=== PATIENT | female | born 1980 | race Caucasian/White ===

== ENCOUNTER 2016-09-11 20:09 | Inpatient (IN) | payer OTHER ==
[2016-09-11 20:27] VITALS: BMI 44.9
[2016-09-11] MEDS ORDERED: NS 1,000 ML IV ONE (21:22)
[2016-09-11] MEDS ORDERED: ONDANSETRON HCL 4 MG/2 ML VIAL IV ONE (21:22)
[2016-09-11] MEDS ORDERED: MORPHINE 4 MG/ML INJECTION IV ONE (21:22)
--- NOTE | 2016-09-11 21:26 | EDPRACDOC ---
- General Information Chief Complaint: Abdominal Pain Stated Complaint: ABDOMINAL PAIN Time Seen by Provider: 09/11/16 21:18 Information Source: Patient Mode Of Arrival: Car Allergies/Adverse Reactions: Allergies Allergy/AdvReac Type Severity Reaction Status Date / Time phenytoin [From Dilantin] Allergy Rash-Genera Verified 09/11/16 22:02 lized povidone-iodine Allergy Hives* Verified 09/11/16 22:02 [From Betadine] soap [From Betadine] Allergy Hives* Verified 09/11/16 22:02 - History of Present Illness Onset: [employer] HPI: PT PRESENTS WITH RUQ PAIN THAT BEGAN LAST NIGHT. STATES THE PAIN IS RADIATING TO HER BACK. STATES THE PAIN IS WORSE AFTER SHE EATS. PT STATES SHE HAS NAUSEA WITHOUT VOMITING. Pain Location: Reports: RUQ Pain Context: Reports: Spontaneous Pain Severity: Moderate Pain Quality: Reports: Sharp, Stabbing Pain Radiation: Reports: No Radiation Last Menstrual Period: mirena : No Adult Abdominal History: Denies: Abdominal Surgery, Urolithiasis, Bowel Obstruction, Similar Pain (dx) Female Abdominal History: Denies: Abdominal Surgery, UTI, Ectopic, PID, Urolithiasis, Similar Pain (dx) Modifying Factors: improves with: Nothing Female Associated Signs & Symptoms: Reports: Nausea Oral Intake: Decreased Urinary Output: Normal ED Past Medical History - History Reviewed Yes Nurses notes reviewed and agree except as marked - Patient Medical History Psychological History: Denies: Depression Surgical History: Reports: Tonsillectomy/Adnoidectomy - Social Medical History Smoking Status: Never smoker EDM Review of Systems - Review of Systems ROS Negative Except as Marked: Yes All systems reviewed and were negative except as marked - Physical Exam Constitutional: Alert (PT APPEARS UNCOMFORTABLE) Oriented to: Time, Person, Place Last recorded Vital Signs: Last Vital Signs Temp 99.2 F 09/11/16 20:25 Pulse 71 09/11/16 23:03 Resp 20 09/11/16 23:03 BP 109/59 L 09/11/16 23:03 Pulse Ox 95 09/11/16 23:03 Oxygen Pulse Oxygen Saturation 95 O2 Device Room Air Oxygen Flow Rate Fraction of Inspired Oxygen ( FIO2) - HEENT Head: Normal ( normocephalic) Eye Exam: Normal (PERRL, EOMI, Sclera white) Oropharynx: Normal (Pharynx:Moist without exudate,Gums-no swelling) Tympanic Membrane: Normal Nose: No Symptoms Reported (septum midline) Neck: Normal (FROM, trachea at midline) - Respiratory/Cardiovascular Respiratory: Normal - CTA (BBS clear to auscultation without adventitious sounds ) Cardiovascular: Normal (RRR without murmur, gallop or rub) - GI Auscultation: Normal (NABS) Palpation: Normal (Soft,No rebound or guarding, non distended) Tenderness: Moderate, RUQ Jacob's Sign: Negative Rectal Exam: Deferred - Musculoskeletal Back: Normal (Non-Tender) Extremities: Normal (Normal tone, Pulses 2+ No cyanosis or edema, FROM) - Integumentary Skin: Normal, Warm, Dry Lymphatics: Normal (no adenopathy) - Neurologic Memory Impaired: Normal Motor Function: Normal (Normal tone, Pulses 2+ No cyanosis or edema, FROM) Cranial Nerve: Normal (CN II-X11 intact sensation, strength 5/5) Cerebellar: Normal Mood Description: Normal Perception: Normal - Differential Diagnosis Cholecystitis, Cholelithiasis - Results All Results Reviewed and Normal except as Highlighted below: Yes 09/11/16 22:08 09/11/16 22:08 WBC 11.9 xk/uL (3.8-10.8) H 09/11/16 22:08 RBC 4.51 xM/uL (4.20-5.40) 09/11/16 22:08 Hgb 13.1 g/dL (12.0-16.0) 09/11/16 22:08 Hct 39.4 % (36-47) 09/11/16 22:08 MCV 87 fL (81-99) 09/11/16 22:08 MCH 29.1 pg (27-32) 09/11/16 22:08 MCHC 33.3 g/dl (33-36) 09/11/16 22:08 RDW 13.8 % (11.5-14.5) 09/11/16 22:08 Plt Count 296 xk/uL (130-400) 09/11/16 22:08 MPV 8.0 fL (7.4-10.4) 09/11/16 22:08 Neut % (Auto) 68.3 % (45-76) 09/11/16 22:08 Lymph % (Auto) 22.6 % (17-44) 09/11/16 22:08 [place] % (Auto) 6.6 % (3-10) 09/11/16 22:08 Eos % (Auto) 1.9 % (0-5) 09/11/16 22:08 Baso % (Auto) 0.6 % (0-2) 09/11/16 22:08 Absolute Neuts (auto) 8.09 xk/uL (1.7-8.2) 09/11/16 22:08 Absolute Lymphs (auto) 2.62 xk/uL (0.65-4.75) 09/11/16 22:08 Sodium 142 mEq/L (137-146) 09/11/16 22:08 Potassium 3.9 mEq/L (3.5-5.1) 09/11/16 22:08 Chloride 103 mEq/L (98-107) 09/11/16 22:08 Carbon Dioxide 27 mMOL/L (22-33) 09/11/16 22:08 Anion Gap 16 mEq/L (8-16) 09/11/16 22:08 BUN 11 MG/DL (7-17) 09/11/16 22:08 Creatinine 1.00 MG/DL (0.52-1.04) 09/11/16 22:08 Estimated GFR (MDRD) > 60 mL/min (>=60) 09/11/16 22:08 Glucose 134 MG/DL (70-99) H 09/11/16 22:08 Calculated Osmolality 274 MOs/Kg (270-290) 09/11/16 22:08 Calcium 9.1 MG/DL (8.4-10.2) 09/11/16 22:08 Total Bilirubin 0.5 MG/DL (0.2-1.3) 09/11/16 22:08 AST 31 IU/L (14-36) 09/11/16 22:08 ALT 53 IU/L (9-52) H 09/11/16 22:08 Alkaline Phosphatase 62 IU/L (38-126) 09/11/16 22:08 Total Protein 7.8 G/DL (6.3-8.2) 09/11/16 22:08 Albumin 4.2 G/DL (3.5-5.0) 09/11/16 22:08 Lipase 134 U/L (23-300) 09/11/16 22:08 Urine Color Yellow 09/11/16 21:29 Urine Clarity Cldy 09/11/16 21:29 Urine pH 5.0 (5.0-8.0) 09/11/16 21:29 Ur Specific Felch 1.025 (1.003-1.035) 09/11/16 21:29 Urine Protein 1+ (NEG/TRACE) H 09/11/16 21:29 Urine Glucose (UA) Neg (NEGATIVE) 09/11/16 21:29 Urine Ketones Neg (NEGATIVE) 09/11/16 21:29 Urine Occult Blood 1+ (NEG/TRACE) H 09/11/16 21:29 Urine Nitrite Neg (NEGATIVE) 09/11/16 21:29 Urine Bilirubin Neg (NEGATIVE) 09/11/16 21:29 Urine Urobilinogen <2.0 MG/DL (0-1) 09/11/16 21:29 Ur Leukocyte Esterase 2+ (NEGATIVE) H 09/11/16 21:29 Urine RBC 20-30 (0-5) H 09/11/16 21:29 Urine WBC Tntc (0-5) H 09/11/16 21:29 Ur Epithelial Cells 4+ 09/11/16 21:29 Urine Bacteria 1+ (NEG/FEW) H 09/11/16 21:29 Urine Mucus Mod (NEG/OCC) H 09/11/16 21:29 Urine Test Neg (NEGATIVE) 09/11/16 21:29 Lab Results 09/11/16 09/11/16 09/11/16 22:08 22:08 21:29 WBC 11.9 H RBC 4.51 Hgb 13.1 Hct 39.4 MCV 87 MCH 29.1 MCHC 33.3 RDW 13.8 Plt Count 296 MPV 8.0 Neut % (Auto) 68.3 Lymph % (Auto) 22.6 [place] % (Auto) 6.6 Eos % (Auto) 1.9 Baso % (Auto) 0.6 Absolute Neuts (auto) 8.09 Absolute Lymphs (auto) 2.62 Sodium 142 Potassium 3.9 Chloride 103 Carbon Dioxide 27 Anion Gap 16 BUN 11 Creatinine 1.00 Estimated GFR (MDRD) > 60 Glucose 134 H Calculated Osmolality 274 Calcium 9.1 Total Bilirubin 0.5 AST 31 ALT 53 H Alkaline Phosphatase 62 Total Protein 7.8 Albumin 4.2 Lipase 134 Urine Color Yellow Urine Clarity Cldy Urine pH 5.0 Ur Specific Felch 1.025 Urine Protein 1+ H Urine Glucose (UA) Neg Urine Ketones Neg Urine Occult Blood 1+ H Urine Nitrite Neg Urine Bilirubin Neg Urine Urobilinogen <2.0 Ur Leukocyte Esterase 2+ H Urine RBC 20-30 H Urine WBC Tntc H Ur Epithelial Cells 4+ Urine Bacteria 1+ H Urine Mucus Mod H Urine Test 09/11/16 21:29 WBC RBC Hgb Hct MCV MCH MCHC RDW Plt Count MPV Neut % (Auto) Lymph % (Auto) [place] % (Auto) Eos % (Auto) Baso % (Auto) Absolute Neuts (auto) Absolute Lymphs (auto) Sodium Potassium Chloride Carbon Dioxide Anion Gap BUN Creatinine Estimated GFR (MDRD) Glucose Calculated Osmolality Calcium Total Bilirubin AST ALT Alkaline Phosphatase Total Protein Albumin Lipase Urine Color Urine Clarity Urine pH Ur Specific Felch Urine Protein Urine Glucose (UA) Urine Ketones Urine Occult Blood Urine Nitrite Urine Bilirubin Urine Urobilinogen Ur Leukocyte Esterase Urine RBC Urine WBC Ur Epithelial Cells Urine Bacteria Urine Mucus Urine Test Neg - Departure Disposition: Admit IP To This Hospital Condition: Stable Final Diagnosis: Cholelithiasis Qualifiers: Cholelithiasis location: gallbladder Cholecystitis presence: without cholecystitis Biliary obstruction: without biliary obstruction Qualified Code(s) : K80.20 - Calculus of gallbladder without cholecystitis without obstruction Instructions: Acute Abdominal Pain (ED), Gallstones (ED) Education/Counseling Given To: Patient Education/Counseling Given Regarding: Diagnosis, Treatment, Prognosis, Follow Up Referrals: Perry Samuels DO [Staff Physician] - One Week Decision to Admit Time: 23:20 Decision to admit date: 09/11/16 Decision to admit: from ED - Physician Consulted Surgery Time Called: 23:20 Provider Called: Perry Samuels Time Enterer Returned Call: 23:20
[2016-09-11 21:54] LABS: LEUKOCYTES/URINE 2+ (NEGATIVE); NITRITE/URINE NEG (NEGATIVE); RBC/URINE 20-30 (0-5); URINE OCCULT BLOOD 1+ (NEG/TRACE); WBC/URINE TNTC (0-5)
[2016-09-11 22:15] LABS: AUTOMATED BASOPHIL 0.6 % (0-2); AUTOMATED EOSINOPHIL 1.9 % (0-5); AUTOMATED LYMPH 22.6 % (17-44); AUTOMATED MONOCYTE 6.6 % (3-10); AUTOMATED NEUTROPHIL 68.3 % (45-76)
[2016-09-11 22:26] LABS: BLOOD UREA NITROGEN 11 MG/DL (7-17); CALCIUM 9.1 MG/DL (8.4-10.2); CALCULATED OSMOLALITY 274 MOs/Kg (270-290); CHLORIDE 103 mEq/L (98-107); GLUCOSE 134 MG/DL (70-99); SODIUM LEVEL 142 mEq/L (137-146); TOTAL PROTEIN 7.8 G/DL (6.3-8.2)
[2016-09-11] MEDS ORDERED: CEFTRIAXONE 1 GM in D5W 100 ML IV ONE (22:26)
[2016-09-11] MEDS ORDERED: Pharmacy Review for Metformin - IV Contrast Given SCH (23:00)
--- NOTE | 2016-09-11 23:11 | DIRPT ---
CLINICAL DATA: RIGHT upper quadrant pain. Nausea for 1 day. EXAM: CT ABDOMEN AND PELVIS WITH CONTRAST TECHNIQUE: Multidetector CT imaging of the abdomen and pelvis was performed using the standard protocol following bolus administration of intravenous contrast. CONTRAST: 120 cc Isovue 370 COMPARISON: Abdominal ultrasound September 11, 2016 at 1817 hours FINDINGS: LUNG BASES: Included view of the lung bases are clear. Visualized heart and pericardium are unremarkable. SOLID ORGANS: The liver is diffusely hypodense compatible with steatosis, otherwise unremarkable. Mild gallbladder wall thickening small amount of pericholecystic free fluid. Known gallstone is not identified by CT. Spleen, pancreas and adrenal glands are unremarkable. GASTROINTESTINAL TRACT: A few loops of mildly prominent small bowel in the LEFT upper quadrant. The stomach, large bowel are normal in course and caliber without inflammatory changes. Normal appendix. KIDNEYS/ URINARY TRACT: Kidneys are orthotopic, demonstrating symmetric enhancement. No nephrolithiasis, hydronephrosis or solid renal masses. The unopacified ureters are normal in course and caliber. Urinary bladder is partially distended and unremarkable. PERITONEUM/RETROPERITONEUM: Aortoiliac vessels are normal in course and caliber. No lymphadenopathy by CT size criteria. IUD central in the uterus. No intraperitoneal free air. SOFT TISSUE/OSSEOUS STRUCTURES: Non-suspicious. Small fat containing umbilical hernia. Small L4-5 and L5-S1 broad-based disc bulges. IMPRESSION: Gallbladder wall thickening and small amount of pericholecystic fluid corroborating today's sonographic findings of acute cholecystitis. Hepatic steatosis. Electronically Signed By: Juan Polo M.D. On: 09/11/2016 23:08
[2016-09-11] MEDS ORDERED: MAGNESIUM HYDROXIDE 30 ML BOTTLE PO PRN (23:26)
[2016-09-11] MEDS ORDERED: Aluminum;Magnesium;Simethicone 30 ML UDC PO PRN (23:26)
[2016-09-11] MEDS ORDERED: DOCUSATE-SENNA CONCENTRATE TAB PO PRN (23:26)
[2016-09-11] MEDS ORDERED: ONDANSETRON HCL 4 MG/2 ML VIAL IV PRN (23:26)
[2016-09-11] MEDS ORDERED: PROMETHAZINE 25 MG/ML VIAL IV PRN (23:26)
[2016-09-11] MEDS ORDERED: SIMETHICONE 80 MG TAB PO PRN (23:26)
[2016-09-11] MEDS ORDERED: ACETAMINOPHEN 325 MG/TAB TABLET PO PRN (23:26)
[2016-09-11] MEDS ORDERED: Albuterol/Ipratropium Neb 3 ML NEB NEB PRN (23:26)
[2016-09-11] MEDS ORDERED: ENOXAPARIN 40 MG/0.4 ML PFS SQ SCH (23:45)
[2016-09-12] MEDS: LR 1,000 ML IV SCH ×3 (00:11→23:52)
[2016-09-12] MEDS ORDERED: Vaccine Screening Complete SCH (01:00)
[2016-09-12] MEDS: ENOXAPARIN 60 MG/0.6 ML PFS SQ SCH ×2 (01:05→17:27)
[2016-09-12] MEDS: MORPHINE 2 MG/ML INJECTION IV PRN ×4 (01:11→12:12)
[2016-09-12] MEDS: ERTAPENEM 1 GM in NS 100 ML IV SCH (09:02)
--- NOTE | 2016-09-12 13:18 | HISTPHYS ---
- Chief Complaint right upper quadrant abdominal pain - History of Present Illness This is a 35 year old female that began having right upper quadrant abdominal pain on September 11, 2016. She denies associated nausea or vomiting. She denies previous occurrences. She reports that the pain is tolerable currently. - Medical History Respiratory History: Denies: No Significant History, Asthma, COPD, Bronchitis, Asbestosis, Aspiration Pneumonia, Cough, Chronic Bronchitis, Pneumonia, Emphysema, Pulmonary Embolism, Other GI/ History: Reports: Urinary Tract Infection (current) Musculoskeletal History: Denies: No Significant History, Arthritis, Gout, Rheumatoid Arthritis, Osteoarthritis, Other Neurological History: Denies: No Significant History, Cerebrovascular Accident, Seizures, Migraine, Dementia, Epilepsy, Guillian-[place] Syndrome, Parkinson's, Metabolic encephalopathy, Multiple Sclerosis, Myasthenia Gravis, Toxic Encephalopathy, Other Psychological History: Reports: Anxiety. Denies: Depression, Bipolar Disorder - Surgical History Reports: Tonsillectomy/Adnoidectomy - Medictions/Allergies Allergies phenytoin [From Dilantin] Allergy (Verified 09/12/16 00:25) Rash-Generalized povidone-iodine [From Betadine] Allergy (Verified 09/12/16 00:25) Hives* soap [From Betadine] Allergy (Verified 09/12/16 00:25) Hives* Home Medications Bupropion HCl [Bupropion Xl] 1 tab PO DAILY 09/12/16 Lorazepam 0.5 mg PO DIR PRN MDD 1.5 09/12/16 - Family History Reports: Diabetes (dad). Denies: Hypertension, Cancer, Stroke, Cardiac Disorders - Social History Travel Outside of [place] in the Last 3 Months?: No Lives: With Family Smoking Status: Former smoker Social History: Denies: Amphetamine Use, Alcohol Use, Barbiturate Use, Benzodiazipine Use, Cocaine Use, Heroin Use, Marijuana Use, Methadone Use, MDMA (Ecstasy) Use, Substance Use Disorder - Review of Systems Yes All systems reviewed and were negative except as marked (twelve systems reviewed with the patient.) - Physical Exam Vital Signs: Initial Vitals Temperature 99.2 F 09/11/16 20:25 Pulse Rate 77 09/11/16 20:25 Respiratory Rate 20 09/11/16 20:25 Blood Pressure 146/77 09/11/16 20:25 Pulse Oxygen Saturation 98 09/11/16 20:25 Constitutional: Alert (Awake, Fully oriented. Normal and appropriate affect.Well appearing. Well nourished.), No apparent distress Oriented to: Time, Person, Place - HEENT Head: Normal (normocephalic, atraumatic.), Other (No cervical lymphadenopathy. No supraclavicular lymphadenopathy. Neck: No palpable mass, supple , trachea midline.) Eye: Normal (pupils equal, reactive to light, and round; EOMI, Sclera white) Oropharynx: Normal (Pharynx: Moist without exudate,Gums-no swelling, No oropharyngeal lesions or erythema, Mucous membranes are dry.) TMJ: Normal Nose: No Symptoms Reported (septum midline, Nares patent, without discharge or bleeding.) Respiratory: Normal - CTA (Clear to auscultation bilaterally. No wheezing, rales , rhonchi. Chest wall movements are symmetric. No use of accessory muscles to breathe.) Cardiovascular: Normal (RRR , Normal S1, S2. No murmurs, rubs, or gallops. PMI non-displaced. Carotids: no carotid bruits. No bradycardia or tachycardia. DP pulses 2+ bilaterally.) - GI Auscultation: Normal (normal active sounds) Palpation: Normal (Soft,non distended,nontender. No hepatosplenomegaly.) Tenderness: Mild, RUQ. negative: Guarding, Rebound, Rigidity, Epigastric Jacob's Sign: Negative - Musculoskeletal Back: Normal (Non-Tender) Extremities: Normal (Normal tone, DP pulses 2+ bilaterally, No cyanosis or edema bilaterally, FROM bilaterally.) - Integumentary Skin: Normal (Clean, dry, and intact. No rashes. No lesions.) Lymphatics: Normal (No cervical lymphadenopathy. No supraclavicular lymphadenopathy.) - Neurologic Memory Impaired: Normal Motor Function: Normal (Motor 5/5 throughout.Normal tone, Pulses 2+ No cyanosis or edema, FROM) Cranial Nerve: Normal (CN II-XII intact sensation, strength 5/5) Cerebellar: Normal (Babinski: toes downgoing bilaterally. Intact Finger to nose. Sensory grossly intact to light touch. Intact rapid alternating movements bilaterally. No pronator drift.) Mood Description: Normal (Fully oriented. Normal and appropriate affect.) Perception: Normal (Normal and appropriate affect.) - Lab Results 09/11/16 22:08 09/11/16 22:08 - Diagnostic Findings Final Report CLINICAL DATA: RIGHT upper quadrant pain. Nausea for 1 day. EXAM: CT ABDOMEN AND PELVIS WITH CONTRAST TECHNIQUE: Multidetector CT imaging of the abdomen and pelvis was performed using the standard protocol following bolus administration of intravenous contrast. CONTRAST: 120 cc Isovue 370 COMPARISON: Abdominal ultrasound September 11, 2016 at 1817 hours FINDINGS: LUNG BASES: Included view of the lung bases are clear. Visualized heart and pericardium are unremarkable. SOLID ORGANS: The liver is diffusely hypodense compatible with steatosis, otherwise unremarkable. Mild gallbladder wall thickening small amount of pericholecystic free fluid. Known gallstone is not identified by CT. Spleen, pancreas and adrenal glands are unremarkable. GASTROINTESTINAL TRACT: A few loops of mildly prominent small bowel in the LEFT upper quadrant. The stomach, large bowel are normal in course and caliber without inflammatory changes. Normal appendix. KIDNEYS/ URINARY TRACT: Kidneys are orthotopic, demonstrating symmetric enhancement. No nephrolithiasis, hydronephrosis or solid renal masses. The unopacified ureters are normal in course and caliber. Urinary bladder is partially distended and unremarkable. PERITONEUM/RETROPERITONEUM: Aortoiliac vessels are normal in course and caliber. No lymphadenopathy by CT size criteria. IUD central in the uterus. No intraperitoneal free air. SOFT TISSUE/OSSEOUS STRUCTURES: Non-suspicious. Small fat containing umbilical hernia. Small L4-5 and L5-S1 broad-based disc bulges. IMPRESSION: Gallbladder wall thickening and small amount of pericholecystic fluid corroborating today's sonographic findings of acute cholecystitis. Hepatic steatosis. Electronically Signed By: Juan Polo M.D. On: 09/11/2016 23:08 - Assessment/Plan (1) Cholecystitis, acute with cholelithiasis K80.00 - CALCULUS OF GALLBLADDER W ACUTE CHOLECYST W/O OBSTRUCTION Acute Present on Admission: Yes gallbladder without biliary obstruction K80.00 - Calculus of gallbladder with acute cholecystitis without obstruction Comment: We will plan for laparoscopic cholecystectomy with intraoperative cholangiogram , possible open incision. The indications, benefits and risks associated with the operation were discussed with the patient. All questions were answered. Case Care Discussed with: Patient, Nursing Staff ([facility] nursing staff)
[2016-09-12] MEDS: IBUPROFEN 600 MG TAB PO PRN (14:16)
[2016-09-12] MEDS: OXYCODONE HCL 5 MG TABLET PO PRN (14:16)
[2016-09-13] MEDS: ERTAPENEM 1 GM in NS 100 ML IV SCH (08:53)
[2016-09-13] MEDS: LR 1,000 ML IV SCH ×2 (12:28→22:30)
--- NOTE | 2016-09-13 15:24 | PCM.SURGRO ---
- Subjective Chief Complaint: right upper quadrant abdominal pain Hospital Day #: 2 (cholecystitis with cholelithiasis) Patient: Reports: Feels better, Still having pain (Patient reports that she was feeling better than the pain returned in the upper right abdomen.), Tolerating Regular Diet, Voiding without difficulty, Flatus, No Bowel Movement, Afebrile, Ambulating in Room. Denies: Diarrhea, Nausea, Vomiting, Shortness of breath - Objective / Physical Exam Vital Signs: Temperature: 97.5 F (09/13/16 05:20) HR: 66 (09/13/16 05:20)RR: 16 (09/13/16 05: 20) BP: 125/81 (09/13/16 05:20)Pulse Ox: 98 (09/11/16 23:33) General: Alert, Oriented x3, Cooperative HEENT: Normal, Anicteric Sclera Respiratory: Normal - CTA Cardiovascular: Regular rate and rhythm Gastrointestinal: Soft, Bowel Sounds, Tender (right upper quadrant and epigastric region). negative: Distended, Guarding, Firm, Rigid, Hernia Extremities: negative: Swelling, Edema Psych/Mental Status: Appropriate, Normal Affect, Cooperative. negative: Agitated, Anxious Neurological: Normal speech Skin: Warm,Dry and Intact, No rashes - Assessment and Plan (1) Cholecystitis, acute with cholelithiasis Acute K80.00 - CALCULUS OF GALLBLADDER W ACUTE CHOLECYST W/O OBSTRUCTION Present on Admission: Yes gallbladder without biliary obstruction K80.00 - Calculus of gallbladder with acute cholecystitis without obstruction Comment/Plan: We will plan for laparoscopic cholecystectomy with intraoperative cholangiogram , possible open incision. The indications, benefits and risks associated with the operation have been discussed with the patient. All questions were answered. - Review of Systems Yes All systems reviewed and were negative except as marked (twelve systems reviewed with the patient)
[2016-09-13] MEDS: ENOXAPARIN 60 MG/0.6 ML PFS SQ SCH (17:58)
[2016-09-14] MEDS: IBUPROFEN 600 MG TAB PO PRN ×2 (02:12→22:02)
[2016-09-14] MEDS: OXYCODONE HCL 5 MG TABLET PO PRN ×2 (02:13→22:02)
[2016-09-14] MEDS: ERTAPENEM 1 GM in NS 100 ML IV SCH (08:35)
[2016-09-14] MEDS: LR 1,000 ML IV SCH ×2 (10:32→20:32)
--- NOTE | 2016-09-14 12:20 | PCM.SURGRO ---
- Subjective Chief Complaint: right upper quadrant abdominal pain Hospital Day #: 3 (cholecystitis with cholelithiasis) Patient: Reports: Feels better, Pain is less, Tolerating Regular Diet, No Flatus , No Bowel Movement, Afebrile, Ambulating in Room. Denies: Nausea, Vomiting, Shortness of breath - Objective / Physical Exam Vital Signs: Temperature: 98.1 F (09/14/16 10:44) HR: 70 (09/14/16 10:44)RR: 16 (09/14/16 10: 44) BP: 121/82 (09/14/16 10:44)Pulse Ox: 98 (09/11/16 23:33) General: Alert, Oriented x3, Cooperative, No acute distress HEENT: Normal, Anicteric Sclera, Mucous membr. moist/pink Respiratory: Normal - CTA Cardiovascular: Regular rate and rhythm Gastrointestinal: Soft, Bowel Sounds. negative: Distended, Tender, Guarding, Firm, Rigid Extremities: negative: Swelling, Edema Psych/Mental Status: Appropriate, Normal Affect, Cooperative. negative: Agitated, Anxious Neurological: Normal speech Skin: Warm,Dry and Intact, No rashes Lymphatics: Normal - Assessment and Plan (1) Cholecystitis, acute with cholelithiasis Acute K80.00 - CALCULUS OF GALLBLADDER W ACUTE CHOLECYST W/O OBSTRUCTION Present on Admission: Yes gallbladder without biliary obstruction K80.00 - Calculus of gallbladder with acute cholecystitis without obstruction Comment/Plan: We will plan for laparoscopic cholecystectomy with intraoperative cholangiogram , possible open incision. The indications, benefits and risks were discussed with the patient at length. All questions were answered. Informed consent was obtained.
[2016-09-15] MEDS: LR 1,000 ML IV SCH ×2 (06:38→17:36)
[2016-09-15] MEDS: ERTAPENEM 1 GM in NS 100 ML IV SCH (08:29)
[2016-09-15] MEDS ORDERED: BuPROPion 150 MG XL TAB PO SCH (09:00)
[2016-09-15] MEDS ORDERED: MIDAZOLAM 2 MG/2 ML VIAL IV ONE (10:00)
[2016-09-15] MEDS ORDERED: NEOSTIGMINE 1 MG/1 ML (1:1000) INJ 10 ML MDV IM ONE (10:00)
[2016-09-15] MEDS ORDERED: LIDOCAINE 100 MG PFS IV ONE (10:00)
[2016-09-15] MEDS ORDERED: DEXAMETHASONE 4 MG/ML VIAL IV ONE (10:00)
[2016-09-15] MEDS ORDERED: SUCCINYLCHOLINE 20 MG/1 ML INJ 10 ML MDV IV ONE (10:00)
[2016-09-15] MEDS ORDERED: FENTANYL 250 MCG/5 ML VIAL IV ONE (10:00)
[2016-09-15] MEDS ORDERED: GLYCOPYRROLATE 1 MG VIAL IM ONE (10:00)
[2016-09-15] MEDS ORDERED: PROPOFOL 200 MG/20 ML VIAL IV ONE (10:00)
[2016-09-15] MEDS ORDERED: HYDROmorphone 2 MG/ML VIAL IM ONE (10:00)
[2016-09-15] MEDS ORDERED: ONDANSETRON HCL 4 MG/2 ML VIAL IV ONE (10:00)
[2016-09-15] MEDS ORDERED: ROCURONIUM 50 MG/5 ML VIAL IV ONE (10:00)
[2016-09-15] MEDS ORDERED: ONDANSETRON HCL 4 MG ODT TAB PO PRN (11:03)
[2016-09-15] MEDS ORDERED: MEPERIDINE 25 MG/ML TUBEX IV PRN (11:03)
[2016-09-15] MEDS ORDERED: FENTANYL 100 MCG/2 ML VIAL IV PRN ×2 (11:03)
[2016-09-15] MEDS ORDERED: ONDANSETRON HCL 4 MG/2 ML VIAL IV PRN (11:03)
[2016-09-15] MEDS ORDERED: hydrALAZINE 20 MG/ML VIAL IV PRN (11:03)
[2016-09-15] MEDS ORDERED: PROMETHAZINE 25 MG/ML VIAL IV PRN ×2 (11:03)
[2016-09-15] MEDS ORDERED: LABETALOL 20 MG/4 ML SYRINGE IV PRN (11:03)
[2016-09-15] MEDS ORDERED: HYDROmorphone 1 MG INJECTION IV PRN ×2 (11:03)
--- NOTE | 2016-09-15 11:04 | HIM.ANES ---
Anesthesia Evaluation & Plan - Focused Review of Systems Now: No Cardiac History: No: Hx Cardiac Disorders HEENT: No: Other HEENT Problems Respiratory: No: Hx Asthma, Hx Emphysema, Hx Chronic Obstructive Pulmonary Disease (COPD) , Hx Pneumonia Gastrointestinal: No: Hx Gastrointestinal Disorders, Hx Obstructive Bowel Neurological/Musculoskeletal: No: HX Cerebrovascular Accident, Hx Dementia, Hx Seizures, Hx Neurological Disorders Psychological: Yes Hx Anxiety, No Hx Depression, Yes Hx Mental/Emotional Disorders, No Hx Bipolar Disorder HX Other Psyco/Soc Problems: currently takes meds for anxiety Blood/Autoimmune: No: Hx Blood Transfusions, Hx Anemia, Hx AIDS, Hx Hepatitis (type) Smoking Status: Former smoker Past Social History: Denies: Amphetamine Use, Alcohol Use, Barbiturate Use, Benzodiazipine Use, Cocaine Use, Heroin Use, Marijuana Use, Methadone Use, MDMA (Ecstasy) Use, Substance Use Disorder Surgical History: Yes: T&A Other Surgical History: toncillectomy-1999 - Focused Physical Exam NPO since: MIDNIGHT Mallampati: Class IV Thyromental Distance: Greater than 3 Neck: Full Range of Motion Dental: Normal - no significant findings Cardiovascular/Chest: Normal Respiratory: Lungs clear Any problems with anesthesia, including nausea and vomiting?: No Any relatives with a history of Malignant Hyperthermia?: No Beta Satnam given (if appropriate): N/A Other: Problem List Problem Status Onset Cholecystitis, acute with cholelithiasis Acute Cholelithiasis Acute PT/PTT/INR/ Urine Test Neg (NEGATIVE) 09/11/16 21:29 Allergies Allergy/AdvReac Type Severity Reaction Status Date / Time phenytoin [From Dilantin] Allergy Rash-Genera Verified 09/12/16 00:25 lized povidone-iodine Allergy Hives* Verified 09/12/16 00:25 [From Betadine] soap [From Betadine] Allergy Hives* Verified 09/12/16 00:25 Home Medications Medication Instructions Recorded Last Taken Type Bupropion HCl [Bupropion Xl] 1 tab PO DAILY 09/12/16 09/11/16 07:00 History yes Lorazepam 0.5 mg PO DIR PRN MDD 1.5 09/12/16 09/11/16 07:00 History 0.5 MG Vital Signs Temperature 98.1 F 09/15/16 11:04 Pulse Rate 71 09/15/16 11:04 Respiratory Rate 16 09/15/16 11:04 Blood Pressure 138/84 09/15/16 11:04 Pulse Oxygen Saturation 98 09/15/16 11:04 - Anesthetic Plan Anesthesia Type: General ASA Class: 3 -: I have examined this patient and reviewed the medical record. The patient has been assessed prior to anesthesia. Risks and benefits of anesthesia and anesthetic technique options have been discussed and all questions answered. The patient accepts the risk and desires me to proceed with the planned anesthetic.
--- NOTE | 2016-09-15 11:04 | SC.ANESPOS ---
Post-Anesthesia Note LOC: [facility] on Calling Post-Anesthesia Assessment: Awake, Returned to Baseline, Hemodynamically Stable , Pain Control Adequate Phase I & II Recovery Complete: Yes Apparent Anesthesia Complication: No : N - Vital Signs Blood Pressure: 138/84 Pulse: 71 Resp Rate: 16 O2 Sat: 98 Temp: 98.1 F
[2016-09-15] MEDS ORDERED: BUPIVACAINE 0.5% 30 ML VIAL ONE (12:26)
[2016-09-15] MEDS ORDERED: ISOVUE-300 (61%) 50 ML ONE (12:27)
--- NOTE | 2016-09-15 15:25 | HIMOPRPT ---
DATE OF PROCEDURE: 09/15/16 PREOPERATIVE DIAGNOSIS: Chronic cholecystitis with cholelithiasis. POSTOPERATIVE DIAGNOSIS: Chronic cholecystitis with cholelithiasis. PROCEDURE: Laparoscopic cholecystectomy with intraoperative cholangiogram SURGEON: Perry Samuels DO, Riccardo He MD ANESTHESIA: General endotracheal. ANESTHESIOLOGIST: Dr. Derrick Huber SPECIMEN: Gallbladder and contents. SPONGE COUNT: Correct. PACKINGS AND DRAINS: None. PATIENT CONDITION: Stable. ESTIMATED BLOOD LOSS: 5mL INDICATIONS: This is a 35-year-old female with right upper quadrant and epigastric abdominal pain. Imaging demonstrated gallstones. It was recommend to this patient, laparoscopic cholecystectomy with intraoperative cholangiogram, possible open incision. The risks associated with operation were discussed with the patient in detail. These risks include, but not limited to bleeding, infection, port site herniation, injury to intra-abdominal blood vessels, injury to small and large intestine, deep vein thrombosis, resultant pulmonary embolism, perioperative cardiac and respiratory morbidity and mortality, injury to common bile duct resulting in need for reoperation, injury to intrahepatic bile duct resulting in need for percutaneous drainage, possible endoscopic retrograde cholangiopancreatography. All questions were answered and informed consent was obtained. FINDINGS: There was a very small ( 5 mm diameter) reducible umbilical hernia noted. Gallbladder was severely distended with hydrops of the gallbladder. Minimal omental adhesions of the gallbladder. On intraoperative cholangiogram, no evidence of retained stone or obstruction. The liver was very large with smooth surface and rounded edges. OPERATIVE AND TECHNIQUE: With consent, the patient was taken to the operative suite at [facility] and placed in supine position. General anesthesia was induced. Having successful completion of this, the anterior abdomen was sterilely prepped and draped in usual fashion. All members of surgical team were in agreement of correct patient and correct procedure. Curvilinear incision was made inferior to the umbilicus, carried down to the fascial layers entering the peritoneal cavity under direct visualization. It was insufflated to 15 mmHg and kept at or below this pressure at all times during the course of surgery. A total of 3 accessory ports were placed in the right upper quadrant each 5 mm in size, each placed under laparoscopic visualization. Gallbladder was grasped and elevated. The gallbladder was aspirated with clear to slightly white fluid aspirated. Omental adhesions were removed utilizing gentle blunt dissection staying very close to the gallbladder. Cystic duct and cystic artery were circumferentially isolated. Gallbladder cystic duct junction was clearly visualized. Intraoperative cholangiogram was performed with Atilio cholangiocatheter, findings as described above. Once again, the cystic duct circumferentially isolated. Three metallic clips were placed across then transected, leaving 2 on the stump and 1 on the specimen. Cystic artery was circumferentially isolated. Three metallic placed across were then transected, leaving 2 on the stump and 1 on the specimen. Posterior vessel to the gallbladder was identified, this was doubly clamped. Hemostasis was excellent. Gallbladder was removed from liver bed utilizing electrocautery, placed in Endobag, removed the body and passed off as specimen. Right upper quadrant was vigorously irrigated and aspirated dry. Clips were visualized in place. No evidence of arterial or venous bleeding. No evidence of bile duct leakage. Accessory port sites were hemostatic on removal. CO2 gas was allowed to escape in the peritoneal cavity. Fascia was closed with [id number] 0 Vicryl sutures times x2. Skin was closed with 4-0 Monocryl subcuticular stitch. After infiltration of anesthetic, Dermabond was applied. Sterile occlusive dressing was applied over this. Anesthesia was reversed. Mrs. Campos was taken to recovery, having tolerated the procedure well.
--- NOTE | 2016-09-15 15:26 | HIMOPRPT ---
DATE OF PROCEDURE: 09/15/16 Preoperative diagnosis: Cholelithiasis with chronic cholecystitis Postoperative diagnosis: Cholelithiasis with chronic cholecystitis, final pathology pending Procedure: Intraoperative cholangiography under fluoroscopic guidance Surgeon: Perry Samuels DO Anesthesia: General ANESTHESIOLOGIST: Dr. Derrick Huber Blood loss: None Packings and drains: None Complications: None Operative findings and technique: During the course of laparoscopic cholecystectomy by Dr. Samuels, intraoperative cholangiography was performed under fluoroscopic guidance. Fluoroscopic images reveal a cholangiocatheter on the infundibulum of the gallbladder. Contrast dye is noted to fill the infundibulum. Contrast dye is noted to proceed down a spiraling cystic duct into a normal caliber common bile duct. Contrast dye flows antegrade down the common bile duct and into the duodenum. Retrograde filling of the hepatic radicles is noted as well. There is no evidence of common bile duct obstruction or lesion. Impression: Normal intraoperative cholangiography without any evidence of retained common bile duct stone, stricture, or other lesion.
--- NOTE | 2016-09-15 15:30 | PCM.SURGRO ---
Intraoperative findings of very friable and inflamed liver bed. The risks of starting pharmacologic DVT prophylaxis outweigh the benefits at this time. We will monitor the patient closely, continue mechanical DVT prophylaxis and ambulate the patient.
--- NOTE | 2016-09-15 15:51 | DIRPT ---
CLINICAL DATA: Acute cholecystitis EXAM: INTRAOPERATIVE CHOLANGIOGRAM TECHNIQUE: Cholangiographic images from the C-arm fluoroscopic device were submitted for interpretation post-operatively. Please see the procedural report for the amount of contrast and the fluoroscopy time utilized. COMPARISON: 09/11/2016 FINDINGS: Intraoperative cholangiogram performed during laparoscopic cholecystectomy. The biliary confluence, common hepatic ducts, accessory right hepatic duct, cystic duct and common common bile duct are all patent. No dilatation or obstruction. Contrast drains into the duodenum. IMPRESSION: Patent biliary system. Electronically Signed By: Arturo Valdes M.D. On: 09/15/2016 15:48
[2016-09-15] MEDS: IBUPROFEN 600 MG TAB PO PRN (20:00)
[2016-09-15] MEDS: OXYCODONE HCL 5 MG TABLET PO PRN (20:00)
[2016-09-16] MEDS: LR 1,000 ML IV SCH (03:03)
[2016-09-16] MEDS: OXYCODONE HCL 5 MG TABLET PO PRN (06:38)
[2016-09-16] MEDS: IBUPROFEN 600 MG TAB PO PRN (06:38)
[2016-09-16 12:07] VITALS: BP 135/76; PULSE 76; TEMP 98
--- NOTE | 2016-09-16 12:35 | PCM.DCS92 ---
- Final/Secondary Discharge Diagnosis (1) Cholecystitis, acute with cholelithiasis Acute K80.00 - CALCULUS OF GALLBLADDER W ACUTE CHOLECYST W/O OBSTRUCTION Present on Admission: Yes gallbladder without biliary obstruction K80.00 - Calculus of gallbladder with acute cholecystitis without obstruction Plan/Goal/Comment: Patient states that she is feeling well. She is ambulating in room without difficulty. She is stable for discharge. Discharge Disposition: Home Discharge Condition: Stable Cognitive Discharge Status: Unimpaired Fuctional Discharge Status: Independent Physician Follow up/Referrals: Perry Samuels DO [Staff Physician] - One Week New Prescriptions: Oxycodone Immediate Release [Oxy-Ir] 5 mg PO Q6H PRN #40 tab PRN Reason: Pain Additional Instructions: Use incentive spirometer every hour while awake. Diet at Discharge: As Tolerated, Regular Activity: No Heavy Lifting, No Driving Call Office For: Worsening Symptoms, Wound is Draining Pus, Fever over 101 F, Fever over 100.5, Wound is Red, Weight Gain (see below), Other (See Details) ( Chest pain or difficulty breathing.) Discontinue use of:: Alcohol, All Illegal Substances, All Types of Tobacco - DC Summary Notes Hospital Course Note:: Discharge summary on patient named CHELSEY MCKEON admitted to [facility] on 09/11/16 by Perry Samuels DO. The patient was diagnosed with cholecystitis with cholelithiasis. She underwent laparoscopic cholecystectomy with intraoperative cholangiogram. Please see operative report for full details. Postoperatively, the patient's diet and activity were slowly advanced, which she was able to tolerate. She was stable for discharge on . Date of discharge is 09/16/16 Discharge condition: stable Final discharge diagnosis: cholecystitis with cholelithiasis. Wound Care Surgical Site: Yes May Shower Starting:: 09/16/16 Remove Clear Dressing In How Many Days?: 7 Remove Gauze Dressing in How Many Days?: 7 Ability To Perform Care (if applicable): Yes - Physical Exam Vital Signs: Initial Vitals Temperature 99.2 F 09/11/16 20:25 Pulse Rate 77 09/11/16 20:25 Respiratory Rate 20 09/11/16 20:25 Blood Pressure 146/77 09/11/16 20:25 Pulse Oxygen Saturation 98 01/06/17 20:25 Constitutional: Alert (Awake, Fully oriented. Normal and appropriate affect.Well appearing. Well nourished.), No apparent distress Oriented to: Time, Person, Place - HEENT Head: Normal (normocephalic, atraumatic.), Other (No cervical lymphadenopathy. No supraclavicular lymphadenopathy. Neck: No palpable mass, supple , trachea midline.) Eye: Normal (pupils equal, reactive to light, and round; EOMI, Sclera white) Oropharynx: Normal (Pharynx: Moist without exudate,Gums-no swelling, No oropharyngeal lesions or erythema, Mucous membranes are dry.) Nose: No Symptoms Reported (septum midline, Nares patent, without discharge or bleeding.) Respiratory: Normal - CTA (Clear to auscultation bilaterally. No wheezing, rales , rhonchi. Chest wall movements are symmetric. No use of accessory muscles to breathe.) Cardiovascular: Normal (RRR , Normal S1, S2. No murmurs, rubs, or gallops. PMI non-displaced. Carotids: no carotid bruits. No bradycardia or tachycardia. DP pulses 2+ bilaterally.) - GI Auscultation: Normal (normal active sounds) Palpation: Normal (Soft,non distended,nontender. No hepatosplenomegaly.) Tenderness: Non tender (No rebound or guarding) Jacob's Sign: Negative - Musculoskeletal Back: Normal (Non-Tender) Extremities: Normal (Normal tone, DP pulses 2+ bilaterally, No cyanosis or edema bilaterally, FROM bilaterally.) - Integumentary Skin: Normal (Clean, dry, and intact. No rashes. No lesions.) Lymphatics: Normal (No cervical lymphadenopathy. No supraclavicular lymphadenopathy.) - Neurologic Memory Impaired: Normal Motor Function: Normal (Motor 5/5 throughout.Normal tone, Pulses 2+ No cyanosis or edema, FROM) Cranial Nerve: Normal (CN II-XII intact sensation, strength 5/5) Cerebellar: Normal (Babinski: toes downgoing bilaterally. Intact Finger to nose. Sensory grossly intact to light touch. Intact rapid alternating movements bilaterally. No pronator drift.) Mood Description: Normal (Fully oriented. Normal and appropriate affect.) Perception: Normal (Normal and appropriate affect.)
== END 2016-09-16 14:09 | disposition home or self-care (01) | DRG 419 ==
LOC: ED 20:09 → MASU 23:23
PROVIDERS: ADMIT Surgery; ATTEND Surgery
PROC: BF131ZZ Fluoroscopy of Gallbladder and Bile Ducts using Low Osmolar Contrast (ICD-10-PCS; 2016-09-15)
PROC: 0FT44ZZ Resection of Gallbladder, Percutaneous Endoscopic Approach (ICD-10-PCS; principal; 2016-09-15 12:15)
DX: K80.12 Calculus of gallbladder with acute and chronic cholecystitis without obstruction (principal); K75.9 Inflammatory liver disease, unspecified; K82.8 Other specified diseases of gallbladder; K66.0 Peritoneal adhesions (postprocedural) (postinfection); K42.9 Umbilical hernia without obstruction or gangrene; Z87.891 Personal history of nicotine dependence
CPT/HCPCS: 36415; 74177; 74300; 80053; 81001; 81025; 83690; 85025; 96361; 96365; 96372; 96375; 99284; A9698; J0330; J0696; J1100; J1170; J1335; J1650; J2001; J2250; J2270; J2405; J2710; J3010; J3490; J7030; J7060